=== PATIENT | female | born 1970 | race Caucasian/White ===

== ENCOUNTER 2017-03-30 14:58 | Emergency (ER) | payer MEDICARE, MEDICAID ==
[~2017-03-30] VITALS: Ht 162.6 cm; Wt 195.4 kg
[~2017-03-30 14:58] MED LIST: AMLO5TAB2 PO; LEVO25TA2 PO; LOSA100T6 PO; METO200T5 PO; METO50TA82 PO; OMEP10CA2 PO; OXYC1TAB7 PO; OXYC20TA2 PO; PARO40TA61 PO; PREG75CA PO; TRAM150C25 PO; TRIA1CAP3 PO; ZOLP10TA5 PO
[2017-03-30] MEDS ORDERED: SODIUM CHLORIDE 0.9% 1,000 ML IV ONE (15:52)
[2017-03-30] MEDS ORDERED: MAALOX/HYOSCYAMINE/LIDOCAINE 45 ML BTL PO ONE (16:00)
[2017-03-30] MEDS ORDERED: FAMOTIDINE 20 MG/2 ML IVP ONE (16:00)
[2017-03-30] MEDS ORDERED: SODIUM CHLORIDE 0.9% 1,000ML IVBOLUS ONE (16:00)
[2017-03-30] MEDS ORDERED: SODIUM CHLORIDE FLUSH 10ML SYR IVF ONE (16:00)
[2017-03-30] MEDS ORDERED: ONDANSETRON 2MG/ML, 2ML IVPush ONE (16:00)
[2017-03-30] MEDS ORDERED: FAMOTIDINE 20 MG/2 ML ONE (16:07)
[2017-03-30] MEDS ORDERED: MAALOX/HYOSCYAMINE/LIDOCAINE 45 ML BTL ONE (16:07)
[2017-03-30] MEDS ORDERED: ONDANSETRON 2MG/ML, 2ML ONE (16:07)
[2017-03-30 16:20] LABS: MICROSCOPIC INDICATED
[2017-03-30 16:25] LABS: CULTURE INDICATED? YES
[2017-03-30 16:32] LABS: ALANINE AMINOTRANSFERASE 35 U/L (12-78); ALBUMIN 3.2 g/dL (3.4-5.0); ANION GAP 9 mmol/L (5-15); CALCIUM 8.8 mg/dL (8.5-10.1); CHLORIDE 107 mmol/L (98-107); CREATININE 1.24 mg/dL (0.55-1.02)
[2017-03-30 16:37] LABS: ALKALINE PHOSPHATASE 88 U/L (45-117); BILIRUBIN,TOTAL 0.8 mg/dL (0.2-1.0); TOTAL PROTEIN 7.9 g/dL (6.4-8.2); TROPONIN I < 0.015 ng/mL (0.000-0.045)
[2017-03-30 17:00] LABS: BASOPHILS # (AUTO) 0.04 x10^3/uL (0-0.1); BASOPHILS % (AUTO) 1 % (0-1); EOSINOPHILS # (AUTO) 0.15 x10^3/uL (0-0.4); EOSINOPHILS % (AUTO) 2 % (1-7); LYMPHOCYTES # (AUTO) 2.57 x10^3/uL (1-3.4); LYMPHOCYTES % (AUTO) 33 % (22-44); MD SCAN; MEAN CORPUSCULAR HGB CONC 34.1 g/dL (32.4-35.8); MEAN CORPUSCULAR VOLUME 96.8 fL (80-100); MEAN PLATELET VOLUME 9.7 fL (7.4-10.4); MONOCYTES # (AUTO) 0.64 x10^3/uL (0.2-0.8); MONOCYTES % (AUTO) 8 % (2-9); NEUTROPHILS # (AUTO) 4.34 x10^3/uL (1.8-6.8); NEUTROPHILS % (AUTO) 56 % (42-75); PLATELET COUNT 176 x10^3/uL (130-400); RED BLOOD COUNT 4.18 x10^6/uL (3.82-5.3); RED CELL DISTRIBUTION WIDTH 13.4 % (9.6-15.2)
[2017-03-30 18:40] VITALS: BP 130/80
== END 2017-03-30 19:12 | disposition home or self-care (01) ==
LOC: ED 16:43
DX: K29.50 Unspecified chronic gastritis without bleeding (principal); E66.01 Morbid (severe) obesity due to excess calories; R10.13 Epigastric pain; K21.9 Gastro-esophageal reflux disease without esophagitis; I10 Essential (primary) hypertension; Z90.49 Acquired absence of other specified parts of digestive tract; Z90.710 Acquired absence of both cervix and uterus; Z88.8 Allergy status to other drugs, medicaments and biological substances
CPT/HCPCS: 36415; 74022; 80053; 81001; 83690; 84484; 85025; 87086; 93005; 96361; 96374; 96375; 99285; J2405; J7030; S0028

== ENCOUNTER 2017-12-12 15:03 | Emergency (ER) | payer MEDICAID, MEDICARE ==
[~2017-12-12] VITALS: Ht 162.6 cm; Wt 202.3 kg
[~2017-12-12 15:03] MED LIST changes: -AMLO5TAB2 PO; +AMLO5TAB7 PO; -LOSA100T6 PO; +LOSA100T7 PO; +METO200T47 PO; -METO200T5 PO
[2017-12-12 16:00] LABS: BASOPHILS # (AUTO) 0.04 x10^3/uL (0-0.1); BASOPHILS % (AUTO) 1 % (0-1); EOSINOPHILS # (AUTO) 0.12 x10^3/uL (0-0.4); EOSINOPHILS % (AUTO) 2 % (1-7); LYMPHOCYTES # (AUTO) 2.31 x10^3/uL (1-3.4); LYMPHOCYTES % (AUTO) 35 % (22-44); MD NO; MEAN CORPUSCULAR HEMOGLOBIN 32.7 pg (27.0-34.8); MEAN PLATELET VOLUME 9.4 fL (7.4-10.4); MONOCYTES # (AUTO) 0.51 x10^3/uL (0.2-0.8); MONOCYTES % (AUTO) 8 % (2-9); NEUTROPHILS # (AUTO) 3.71 x10^3/uL (1.8-6.8); NEUTROPHILS % (AUTO) 55 % (42-75); PLATELET COUNT 153 x10^3/uL (130-400); RED BLOOD COUNT 4.32 x10^6/uL (3.82-5.3)
[2017-12-12 16:12] LABS: ALBUMIN 3.3 g/dL (3.4-5.0); ANION GAP 7 mmol/L (5-15); CALCIUM 8.5 mg/dL (8.5-10.1); CHLORIDE 110 mmol/L (98-107)
[2017-12-12 16:18] LABS: ALANINE AMINOTRANSFERASE 60 U/L (12-78); ALKALINE PHOSPHATASE 109 U/L (45-117); BILIRUBIN,TOTAL 0.8 mg/dL (0.2-1.0); CREATININE 1.02 mg/dL (0.55-1.02); TOTAL PROTEIN 8.4 g/dL (6.4-8.2); TROPONIN I < 0.015 ng/mL (0.000-0.045)
[2017-12-12] MEDS ORDERED: LORazepam 1MG TABLET ONE (16:26)
[2017-12-12] MEDS ORDERED: LORazepam 1MG TABLET PO ONE (16:30)
[2017-12-12 17:46] VITALS: BP 145/74
== END 2017-12-12 18:01 | disposition home or self-care (01) ==
LOC: ED 16:50
DX: F41.1 Generalized anxiety disorder (principal); R06.4 Hyperventilation; K21.9 Gastro-esophageal reflux disease without esophagitis; M19.90 Unspecified osteoarthritis, unspecified site; E07.9 Disorder of thyroid, unspecified; I10 Essential (primary) hypertension; E66.01 Morbid (severe) obesity due to excess calories; Z68.45 Body mass index [BMI] 70 or greater, adult; F43.10 Post-traumatic stress disorder, unspecified; Z88.8 Allergy status to other drugs, medicaments and biological substances; Z90.710 Acquired absence of both cervix and uterus
CPT/HCPCS: 36415; 71045; 80053; 84484; 85025; 93005; 99285

== ENCOUNTER 2017-12-16 20:21 | Emergency (ER) | payer MEDICARE ==
[~2017-12-16] VITALS: Ht 162.6 cm; Wt 206.8 kg
[2017-12-16] MEDS ORDERED: ONDANSETRON ODT 4 MG ONE (20:52)
[2017-12-16] MEDS ORDERED: ONDANSETRON ODT 4 MG PO ONE (21:00)
[2017-12-16 21:06] LABS: ALANINE AMINOTRANSFERASE 51 U/L (12-78); ALBUMIN 3.4 g/dL (3.4-5.0); ANION GAP 10 mmol/L (5-15); CALCIUM 9.2 mg/dL (8.5-10.1); CHLORIDE 110 mmol/L (98-107); CREATININE 1.36 mg/dL (0.55-1.02)
[2017-12-16 21:08] LABS: ALKALINE PHOSPHATASE 123 U/L (45-117); BILIRUBIN,TOTAL 0.5 mg/dL (0.2-1.0); TOTAL PROTEIN 8.5 g/dL (6.4-8.2)
[2017-12-16 21:17] LABS: BASOPHILS # (AUTO) 0.03 x10^3/uL (0-0.1); BASOPHILS % (AUTO) 0 % (0-1); EOSINOPHILS # (AUTO) 0.23 x10^3/uL (0-0.4); EOSINOPHILS % (AUTO) 3 % (1-7); LYMPHOCYTES # (AUTO) 2.23 x10^3/uL (1-3.4); LYMPHOCYTES % (AUTO) 28 % (22-44); MD NO; MEAN CORPUSCULAR HEMOGLOBIN 32.6 pg (27.0-34.8); MEAN CORPUSCULAR HGB CONC 34.3 g/dL (32.4-35.8); MEAN CORPUSCULAR VOLUME 94.9 fL (80-100); MEAN PLATELET VOLUME 9.4 fL (7.4-10.4); MONOCYTES # (AUTO) 0.41 x10^3/uL (0.2-0.8); MONOCYTES % (AUTO) 5 % (2-9); NEUTROPHILS # (AUTO) 5.15 x10^3/uL (1.8-6.8); NEUTROPHILS % (AUTO) 64 % (42-75); PLATELET COUNT 183 x10^3/uL (130-400); RED BLOOD COUNT 4.35 x10^6/uL (3.82-5.3); RED CELL DISTRIBUTION WIDTH 13.9 % (9.6-15.2)
[2017-12-16 21:38] LABS: MICROSCOPIC INDICATED
[2017-12-16 21:49] LABS: CULTURE INDICATED? NO
[2017-12-16] MEDS ORDERED: OMNIPAQUE 350 MG/ML, 150 ML BOTTLE ONE (22:10)
[2017-12-16 22:37] VITALS: BP 141/72
== END 2017-12-16 23:33 | disposition home or self-care (01) ==
LOC: ED 21:27
DX: R10.84 Generalized abdominal pain (principal); R11.2 Nausea with vomiting, unspecified; I10 Essential (primary) hypertension; K59.00 Constipation, unspecified; E66.01 Morbid (severe) obesity due to excess calories; Z68.45 Body mass index [BMI] 70 or greater, adult; Z90.49 Acquired absence of other specified parts of digestive tract; Z90.710 Acquired absence of both cervix and uterus
CPT/HCPCS: 36415; 74021; 74177; 80053; 81001; 83690; 85025; 99285; Q0162; Q9967

== ENCOUNTER 2018-04-22 18:57 | Emergency (ER) | payer MEDICARE, OTHER ==
[~2018-04-22] VITALS: Ht 162.6 cm; Wt 210.0 kg
[~2018-04-22 18:57] MED LIST changes: +AMLO-150 PO; -AMLO5TAB7 PO; +LOSA100T14 PO; -LOSA100T7 PO
[2018-04-22 19:44] LABS: MEAN CORPUSCULAR HEMOGLOBIN 32.2 pg (27.0-34.8); MEAN CORPUSCULAR HGB CONC 33.9 g/dL (32.4-35.8); MEAN CORPUSCULAR VOLUME 95.1 fL (80-100); MEAN PLATELET VOLUME 9.6 fL (7.4-10.4); PLATELET COUNT 164 x10^3/uL (130-400); RED BLOOD COUNT 4.24 x10^6/uL (3.82-5.3); RED CELL DISTRIBUTION WIDTH 14.1 % (9.6-15.2)
[2018-04-22 19:56] LABS: ALANINE AMINOTRANSFERASE 37 U/L (12-78); ANION GAP 9 mmol/L (5-15); CALCIUM 9.1 mg/dL (8.5-10.1); CHLORIDE 109 mmol/L (98-107); CREATININE 1.31 mg/dL (0.55-1.02)
[2018-04-22 20:00] LABS: ALKALINE PHOSPHATASE 108 U/L (45-117); BILIRUBIN,TOTAL 0.6 mg/dL (0.2-1.0); TOTAL PROTEIN 7.9 g/dL (6.4-8.2)
[2018-04-22 20:07] LABS: MD YES
--- NOTE | 2018-04-22 20:07 | NUR ---
TO RM 1 FROM [facility]. PA AT BEDSIDE EXAMINING PT
[2018-04-22 20:13] LABS: BAND#(MANUAL) 0.17 x10^3/uL; BANDS%(MANUAL) 3 % (0-7); MONOS#(MANUAL) 0.17 x10^3/uL (0.3-2.7); MONOS% (MANUAL) 3 % (2-9)
[2018-04-22 20:20] LABS: BASOS% (MANUAL) 1 % (0-1); EOS#(MANUAL) 0.06 x10^3/uL (0.0-0.4); EOS% (MANUAL) 1 % (1-7); LYMPH#(MANUAL) 1.18 x10^3/uL (1-3.4); LYMPHS% (MANUAL) 21 % (22-44); SEG#(MANUAL) 3.92 x10^3/uL (1.8-6.8); SEGS% (MANUAL) 70 % (42-75)
[2018-04-22 20:21] LABS: <PLATELET ESTIMATE> ADEQUATE; <PLT MORPHOLOGY> NORMAL PLT MORPH; <RBC MORPHOLOGY> NORMAL; BASOS#(MANUAL) 0.06 x10^3/uL (0-0.1); REACTIVE LYMPHS # (MANUAL) 0.06 x10^3/uL (0-0); REACTIVE LYMPHS % (MANUAL) 1 % (0-0)
[2018-04-22] MEDS ORDERED: MAALOX/HYOSCYAMINE/LIDOCAINE 45 ML BTL PO ONE (20:30)
[2018-04-22] MEDS ORDERED: DICYCLOMINE 20 MG TABLET PO ONE (20:30)
[2018-04-22 20:56] LABS: MICROSCOPIC INDICATED
[2018-04-22] MEDS ORDERED: DICYCLOMINE 10 MG CAPSULE ONE (21:14)
[2018-04-22] MEDS ORDERED: MAALOX/HYOSCYAMINE/LIDOCAINE 45 ML BTL ONE (21:15)
[2018-04-22 21:23] VITALS: BP 133/70
--- NOTE | 2018-04-22 21:23 | NUR ---
MEDICATED PER ORDERS
[2018-04-22 21:52] LABS: CULTURE INDICATED? YES
== END 2018-04-22 22:26 | disposition home or self-care (01) ==
LOC: ED 21:14
DX: K58.0 Irritable bowel syndrome with diarrhea (principal); R10.84 Generalized abdominal pain; F43.10 Post-traumatic stress disorder, unspecified; E07.9 Disorder of thyroid, unspecified; K21.9 Gastro-esophageal reflux disease without esophagitis; Z90.49 Acquired absence of other specified parts of digestive tract; Z90.89 Acquired absence of other organs; Z88.8 Allergy status to other drugs, medicaments and biological substances
CPT/HCPCS: 36415; 74021; 80053; 81001; 83690; 84703; 85025; 87086; 99284

== ENCOUNTER 2018-04-26 23:45 | Emergency (ER) | payer MEDICARE, OTHER ==
[~2018-04-26] VITALS: Ht 162.6 cm; Wt 210.0 kg
[2018-04-27 01:05] LABS: BASOPHILS # (AUTO) 0.02 x10^3/uL (0-0.1); BASOPHILS % (AUTO) 0 % (0-1); EOSINOPHILS # (AUTO) 0.12 x10^3/uL (0-0.4); EOSINOPHILS % (AUTO) 2 % (1-7); LYMPHOCYTES # (AUTO) 1.96 x10^3/uL (1-3.4); LYMPHOCYTES % (AUTO) 40 % (22-44); MD NO; MEAN CORPUSCULAR HEMOGLOBIN 31.7 pg (27.0-34.8); MEAN CORPUSCULAR HGB CONC 33.6 g/dL (32.4-35.8); MEAN CORPUSCULAR VOLUME 94.2 fL (80-100); MEAN PLATELET VOLUME 9.6 fL (7.4-10.4); MONOCYTES # (AUTO) 0.37 x10^3/uL (0.2-0.8); MONOCYTES % (AUTO) 8 % (2-9); NEUTROPHILS # (AUTO) 2.45 x10^3/uL (1.8-6.8); NEUTROPHILS % (AUTO) 50 % (42-75); PLATELET COUNT 147 x10^3/uL (130-400); RED BLOOD COUNT 4.08 x10^6/uL (3.82-5.3)
[2018-04-27 01:18] LABS: ALANINE AMINOTRANSFERASE 37 U/L (12-78); ALBUMIN 2.8 g/dL (3.4-5.0); ANION GAP 6 mmol/L (5-15); CALCIUM 8.3 mg/dL (8.5-10.1); CHLORIDE 113 mmol/L (98-107); CREATININE 0.98 mg/dL (0.55-1.02)
[2018-04-27 01:23] LABS: ALKALINE PHOSPHATASE 96 U/L (45-117); BILIRUBIN,TOTAL 0.6 mg/dL (0.2-1.0); TOTAL PROTEIN 7.3 g/dL (6.4-8.2)
[2018-04-27] MEDS ORDERED: MORPHINE SULFATE 4 MG/ML, 1ML IVPush PRN (01:30)
[2018-04-27] MEDS ORDERED: ONDANSETRON 2MG/ML, 2ML IVPush ONE (01:30)
[2018-04-27] MEDS ORDERED: PROMETHAZINE 25 MG/ML, 1ML ONE (01:40)
[2018-04-27] MEDS ORDERED: HYDROmorphone 1 MG/ML, 1ML ONE (01:41)
[2018-04-27] MEDS ORDERED: PROMETHAZINE 25 MG/ML, 1ML IM STA (01:44)
[2018-04-27] MEDS ORDERED: HYDROmorphone 1 MG/ML, 1ML IM STA (01:44)
[2018-04-27 03:12] VITALS: BP 142/84
== END 2018-04-27 03:13 | disposition home or self-care (01) ==
LOC: ED 04-27 00:37
DX: K58.9 Irritable bowel syndrome, unspecified (principal); F41.1 Generalized anxiety disorder; K21.9 Gastro-esophageal reflux disease without esophagitis; I10 Essential (primary) hypertension
CPT/HCPCS: 36415; 72110; 76700; 80053; 83690; 84703; 85025; 96372; 99284; J1170; J2550

== ENCOUNTER → 2018-09-03 | Outpatient (CLI) | payer MEDICARE, OTHER | END | disposition home or self-care (01) | LOC: RAD 12:29 | PROVIDERS: ATTEND Family Medicine | DX: M47.816 Spondylosis without myelopathy or radiculopathy, lumbar region (principal); G62.9 Polyneuropathy, unspecified | CPT/HCPCS: 72148 ==

== ENCOUNTER 2019-06-30 22:21 | Emergency (ER) | payer MEDICARE, MEDICAID ==
[~2019-06-30] VITALS: Ht 162.6 cm; Wt 190.0 kg
[2019-06-30 22:31] VITALS: BP 138/81
[2019-06-30] MEDS ORDERED: MAALOX/HYOSCYAMINE/LIDOCAINE 45 ML BTL PO ONE (23:00)
[2019-06-30] MEDS ORDERED: MAALOX/HYOSCYAMINE/LIDOCAINE 45 ML BTL ONE (23:13)
--- NOTE | 2019-06-30 23:30 | NUR ---
PT STATES THAT SHE HAD A GRADUAL ONSET OF RIGHT SIDED CHEST PAIN THIS MORNING, HAS SINCE RADIATED ACROSS HER CHEST. DENIES ANY OTHER ISSUES, NO SOB, NO COUGH, NO FEVERS. ATTACHED TO ALL MONITORS, CHANGED INTO A GOWN. EKG COMPLETE. LAB AT BEDSIDE. PT DENIES ANY FURTHER NEEDS OR CONCERNS. CALL LIGHT IN REACH.
[2019-06-30 23:32] LABS: BASOPHILS # (AUTO) 0.03 x10^3/uL (0-0.1); BASOPHILS % (AUTO) 1 % (0-1); EOSINOPHILS # (AUTO) 0.07 x10^3/uL (0-0.4); EOSINOPHILS % (AUTO) 1 % (1-7); LYMPHOCYTES # (AUTO) 2.16 x10^3/uL (1-3.4); LYMPHOCYTES % (AUTO) 31 % (22-44); MD NO; MEAN CORPUSCULAR HEMOGLOBIN 32.8 pg (27.0-34.8); MEAN CORPUSCULAR HGB CONC 33.1 g/dL (32.4-35.8); MEAN CORPUSCULAR VOLUME 99.1 fL (80-100); MEAN PLATELET VOLUME 9.4 fL (7.4-10.4); MONOCYTES # (AUTO) 0.38 x10^3/uL (0.2-0.8); MONOCYTES % (AUTO) 5 % (2-9); NEUTROPHILS # (AUTO) 4.42 x10^3/uL (1.8-6.8); NEUTROPHILS % (AUTO) 63 % (42-75); PLATELET COUNT 159 x10^3/uL (130-400); RED BLOOD COUNT 3.98 x10^6/uL (3.82-5.3); RED CELL DISTRIBUTION WIDTH 14.8 % (9.6-15.2)
[2019-06-30 23:45] LABS: ALANINE AMINOTRANSFERASE 26 U/L (12-78); ALBUMIN 2.9 g/dL (3.4-5.0); ANION GAP 8 mmol/L (5-15); CALCIUM 8.8 mg/dL (8.5-10.1); CHLORIDE 110 mmol/L (98-107); CREATININE 1.05 mg/dL (0.55-1.02)
[2019-06-30 23:49] LABS: ALKALINE PHOSPHATASE 118 U/L (45-117); BILIRUBIN,TOTAL 0.4 mg/dL (0.2-1.0); TOTAL PROTEIN 7.4 g/dL (6.4-8.2); TROPONIN I < 0.015 ng/mL (0.000-0.045)
== END 2019-07-01 00:20 | disposition home or self-care (01) ==
LOC: ED 22:47
DX: K29.00 Acute gastritis without bleeding (principal); R07.89 Other chest pain; R10.10 Upper abdominal pain, unspecified; I10 Essential (primary) hypertension; E66.01 Morbid (severe) obesity due to excess calories; R94.31 Abnormal electrocardiogram [ECG] [EKG]; Z90.49 Acquired absence of other specified parts of digestive tract; Z90.710 Acquired absence of both cervix and uterus; Z68.45 Body mass index [BMI] 70 or greater, adult; Z86.39 Personal history of other endocrine, nutritional and metabolic disease
CPT/HCPCS: 36415; 71045; 80053; 83690; 84484; 85025; 93005; 99285

== ENCOUNTER 2019-08-05 11:42 | Outpatient (CLI) | payer MEDICARE, MEDICAID | END 2019-08-05 23:59 | disposition home or self-care (01) | LOC: RAD 11:42 | PROVIDERS: ATTEND Physician Assistant | DX: K21.9 Gastro-esophageal reflux disease without esophagitis (principal); R10.13 Epigastric pain; R13.10 Dysphagia, unspecified; K58.9 Irritable bowel syndrome, unspecified | CPT/HCPCS: 74220 ==

== ENCOUNTER 2020-03-04 02:57 | Emergency (ER) | payer MEDICAID, MEDICARE ==
[~2020-03-04] VITALS: Ht 162.6 cm; Wt 198.0 kg
[2020-03-04 04:07] LABS: BASOPHILS % (AUTO) 0 % (0-1); EOSINOPHILS % (AUTO) 1 % (1-7); LYMPHOCYTES % (AUTO) 20 % (22-44); MEAN CORPUSCULAR HEMOGLOBIN 32.6 pg (27.0-34.8); MEAN CORPUSCULAR HGB CONC 33.6 g/dL (32.4-35.8); MEAN PLATELET VOLUME 9.1 fL (7.4-10.4); MONOCYTES % (AUTO) 9 % (2-9); NEUTROPHILS % (AUTO) 71 % (42-75); PLATELET COUNT 113 x10^3/uL (130-400); RED BLOOD COUNT 3.79 x10^6/uL (3.82-5.3); RED CELL DISTRIBUTION WIDTH 14.3 % (9.6-15.2)
--- NOTE | 2020-03-04 04:13 | NUR ---
Patient comes in with complaints of SOB that started this evening when she was getting ready for bed. States that when she lays down its worst and has increase SOB. Patient noted to be 94-97 on RA. Patient placed on hall monitor. call light within reach
[2020-03-04 04:16] LABS: ALBUMIN 2.7 g/dL (3.4-5.0); ANION GAP 4 mmol/L (5-15); CALCIUM 8.3 mg/dL (8.5-10.1); CHLORIDE 112 mmol/L (98-107)
[2020-03-04 04:17] LABS: MD NO
[2020-03-04 04:21] LABS: TROPONIN I < 0.015 ng/mL (0.000-0.045)
[2020-03-04 04:39] VITALS: BP 132/69
[2020-03-06] MEDS ORDERED: celebrex PO (03:45)
[2020-03-06] MEDS ORDERED: amlodipine PO ×2 (03:45)
== END 2020-03-04 05:12 | disposition home or self-care (01) ==
LOC: ED 04:57
DX: U07.1 COVID-19 (principal); R06.00 Dyspnea, unspecified; R06.02 Shortness of breath; R09.81 Nasal congestion; R05 Cough; J02.9 Acute pharyngitis, unspecified; K21.9 Gastro-esophageal reflux disease without esophagitis; I10 Essential (primary) hypertension; M19.90 Unspecified osteoarthritis, unspecified site; R07.89 Other chest pain; E66.01 Morbid (severe) obesity due to excess calories; Z68.45 Body mass index [BMI] 70 or greater, adult; Z86.39 Personal history of other endocrine, nutritional and metabolic disease
CPT/HCPCS: 71045; 80048; 82040; 83880; 84484; 85025; 87635; 93005; 99285